=== PATIENT | male | born 1975 | race Caucasian/White ===

== ENCOUNTER 2019-06-17 16:30 | Emergency (ER) | payer OTHER ==
[2019-06-17 17:04] VITALS: BP 145/82; PULSE 79; TEMP 98.2; BMI 26.7
[2019-06-17] MEDS ORDERED: IBUPROFEN 600 MG TABLET (FP) PO ONE ×2 (17:04→18:09)
[2019-06-17] MEDS ORDERED: METHOCARBAMOL 500 MG TABLET PO ONE (17:04)
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
[2019-06-17] MEDS ORDERED: METHOCARBAMOL 500 MG TABLET ONE (18:09)
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
== END 2019-06-17 18:22 | disposition home or self-care (01) ==
LOC: JERFT 16:30
DX: S39.012A Strain of muscle, fascia and tendon of lower back, initial encounter (principal); X50.1XXA Overexertion from prolonged static or awkward postures, initial encounter; X00.0XXA Exposure to flames in uncontrolled fire in building or structure, initial encounter; Y93.89 Activity, other specified; Y92.89 Other specified places as the place of occurrence of the external cause; Y99.0 Civilian activity done for income or pay
CPT/HCPCS: 99281-25

== ENCOUNTER 2020-10-10 20:54 | Emergency (ER) | payer OTHER ==
[2020-10-10 21:09] VITALS: BP 131/92; PULSE 68; TEMP 98.2; BMI 27.6
[2020-10-10] MEDS ORDERED: ACETAMINOPHEN 500 MG TABLET (FP) PO ONE (21:28)
[2020-10-10] MEDS ORDERED: ACETAMINOPHEN 325 MG TABLET (FP) ONE (21:33)
[2020-10-10] MEDS ORDERED: IBUPROFEN 600 MG TABLET (FP) PO ONE ×2 (22:15→22:21)
== END 2020-10-10 22:44 | disposition home or self-care (01) ==
LOC: JER 20:54
DX: M54.9 Dorsalgia, unspecified (principal)
CPT/HCPCS: 71045-TC-FY; 99283-25

== ENCOUNTER 2023-08-08 15:31 | Emergency (ER) | payer OTHER ==
[2023-08-08 15:37] VITALS: BP 145/83; PULSE 81; RESP 18; TEMP 97.7; BMI 28.7
[2023-08-08] MEDS ORDERED: IBUPROFEN 600 MG TABLET (FP) PO ONE ×2 (17:12→17:14)
[2023-08-08] MEDS ORDERED: CYCLOBENZAPRINE HCL 10 MG TABLET (FP) ONE (17:12)
[2023-08-08] MEDS: CYCLOBENZAPRINE HCL 10 MG TABLET (FP) PO ONE (17:16)
[2023-08-08] MEDS: IBUPROFEN 600 MG TABLET (FP) PO ONE (17:16)
== END 2023-08-08 19:28 | disposition home or self-care (01) ==
LOC: JERFT 15:31
DX: R10.32 Left lower quadrant pain (principal); M54.50 Low back pain, unspecified; R20.0 Anesthesia of skin; R20.2 Paresthesia of skin; R53.1 Weakness; M70.72 Other bursitis of hip, left hip
CPT/HCPCS: 72131-TC; 72192-TC; 99284-25